=== PATIENT | male | born 1970 | race Caucasian/White ===

== ENCOUNTER 2017-05-30 21:36 | Emergency (ER) | payer MEDICAID ==
[2017-05-30 21:51] VITALS: BP 145/91
--- NOTE | 2017-05-31 | EDM.PDOC ---
ED HPI GENERAL MEDICAL PROBLEM - General Chief Complaint: Behavioral/Psych Stated Complaint: EVAL Time Seen by Provider: 05/30/17 22:02 Source of Information: Reports: Patient History Limitations: Reports: No Limitations - History of Present Illness INITIAL COMMENTS - FREE TEXT/NARRATIVE: History of present illness: [47-year-old male with a history of a significant head injury in 2009 was suffered with depression since then presenting to the ER after driving up to [employer] and dropping off some furniture that to the he had in his possession that was on prior girlfriend of his. On the way back he just became very very depressed and stopped in to our ER 1 to get some help. He is on Paxil 20 mg a day and is seeing a counselor and has an appointment with this counselor in [place] on . He lives in [place] his brother works in [place] and they live together and apparently his relationship with his brother is very positive and supportive and so that is one positive in his life. He is also troubled by all of his felonies and convictions that she is faced in the last couple of years and some of which he may not actually be guilty but still he still having the face being on parole and following up with the courts orders for anger management and seeing a psychiatrist seeing a psychologist etc. and he finds this to be a great burden to him and is becoming a burden financially as hinged his insurance is not covering his visits anymore. He denies being suicidal at this time and has also confirmed this with the nurse that checked him in. He's had one prior suicidal attempt using a knife and cutting his upper forearm back in November of this year. He describes that event as a "wakeup call" and that he feels he will never try that again or be suicidal again or attempt to kill himself again.] Review of systems: As per history of present illness and below otherwise all systems reviewed and negative. Past medical history: As per history of present illness and as reviewed below otherwise noncontributory. Surgical history: As per history of present illness and as reviewed below otherwise noncontributory. Social history: No reported history of drug or alcohol abuse. Family history: As per history of present illness and as reviewed below otherwise noncontributory. Physical exam: HEENT: Atraumatic, normocephalic, pupils reactive, negative for conjunctival pallor or scleral icterus, mucous membranes moist, throat clear, neck supple, nontender, trachea midline. Lungs: Clear to auscultation, breath sounds equal bilaterally, chest nontender. Heart: S1S2, regular, negative for clicks, rubs, or JVD. Abdomen: Soft, nondistended, nontender. Negative for masses or hepatosplenomegaly. Negative for costovertebral tenderness. Pelvis: Stable nontender. Genitourinary: Deferred. Rectal: Deferred. Extremities: Atraumatic, negative for cords or calf pain. Neurovascular unremarkable. Neuro: Awake, alert, oriented. Cranial nerves II through XII unremarkable. Cerebellum unremarkable. Motor and sensory unremarkable throughout. Exam nonfocal. Psych: Initially he had poor eye contact but is revisited he became more animated and had better eye contact and his mood seemed to improve and even shared a few jokes and he laughed and felt better and felt that he could wait safely for his appointment with his counselor and to visit with her about his concerns. He is anxious to get home because he says his brother does not drive any needs to pick him up from his place of employment at 12:30 in [place] and take him home so he has an immediate purpose to his life to his reassuring to me as we assess his suicidality. I do not believe he is significantly suicidal at this time and will discharge him with the understanding that he will follow up with his psychologist in [place] this . Diagnostics: [] Therapeutics: [] Impression: [Depression] Plan: [See note above] Definitive disposition and diagnosis as appropriate pending reevaluation and review of above. left wrist Pain Score (Numeric/FACES): 2 - Related Data Allergies Allergy/AdvReac Type Severity Reaction Status Date / Time cyclobenzaprine Allergy Nausea Verified 05/30/17 21:58 [From Flexeril] Home Meds: Home Meds PARoxetine HCl [Paxil] 40 mg PO DAILY 05/30/17 [History] Past Medical History HEENT History: Reports: Impaired Vision Cardiovascular History: Reports: None Respiratory History: Reports: None Gastrointestinal History: Reports: None Genitourinary History: Reports: None Musculoskeletal History: Reports: Fracture, Other (See Below) Other Musculoskeletal History: left hand x2 Neurological History: Reports: Brain Injury, Concussion, Head Trauma, Migraines , Other (See Below) Other Neuro History: TBI x2 Psychiatric History: Reports: Anxiety, Depression, Panic Attack, Suicide Attempt Endocrine/Metabolic History: Reports: None Hematologic History: Reports: None Immunologic History: Reports: None Oncologic (Cancer) History: Reports: None Dermatologic History: Reports: Psoriasis - Infectious Disease History Infectious Disease History: Reports: Chicken Pox - Past Surgical History Head Surgeries/Procedures: Reports: None HEENT Surgical History: Reports: None Cardiovascular Surgical History: Reports: None Respiratory Surgical History: Reports: None GI Surgical History: Reports: None Endocrine Surgical History: Reports: None Neurological Surgical History: Reports: None Musculoskeletal Surgical History: Reports: None Oncologic Surgical History: Reports: None Dermatological Surgical History: Reports: None Social & Family History - Tobacco Use Smoking Status *Q: Current Every Day Smoker Years of Tobacco use: 35 Packs/Tins Daily: 2 - Caffeine Use Caffeine Use: Reports: Soda - Recreational Drug Use Recreational Drug Use: No ED ROS GENERAL - Review of Systems Review Of Systems: ROS reveals no pertinent complaints other than HPI. ED EXAM, GENERAL - Physical Exam Exam: See Below Course - Vital Signs Last Recorded V/S: Last Vital Signs Temp 36.3 C 05/30/17 21:46 Pulse 101 H 05/30/17 21:46 Resp 14 05/30/17 21:46 BP 145/91 H 05/30/17 21:46 Pulse Ox 93 L 05/30/17 21:46 Departure - Departure Time of Disposition: 23:59 Disposition: Home, Self-Care 01 Condition: Good Clinical Impression: Depressive disorder - Discharge Information Referrals: Norman Rothman MD [Primary Care Provider] - Additional Instructions: It was good to visit with you admit you and I wish you success as you continue to try to resolve the stressors and problems are facing her life. I think you' re making good progress just continue to move forward and I think that things are going to look up for you soon.
== END 2017-05-31 00:15 | disposition home or self-care (01) ==
LOC: JP.ED 21:36
DX: F32.9 Major depressive disorder, single episode, unspecified (principal); F41.9 Anxiety disorder, unspecified; F17.210 Nicotine dependence, cigarettes, uncomplicated; Z79.899 Other long term (current) drug therapy; Z88.8 Allergy status to other drugs, medicaments and biological substances
CPT/HCPCS: 99283; 99285